=== PATIENT | female | born 1975 | race Caucasian/White ===

== ENCOUNTER 2020-10-19 07:35 | Day surgery (SDC) | payer OTHER ==
[2020-10-18 11:35] LABS: COVID AG,FIA SOURCE NASOPHARYNGEAL
[~2020-10-19] VITALS: Ht 149.9 cm; Wt 127.3 kg
[2020-10-19 09:00] LABS: GLUCOMETER DEV NAME(LOC) SDS.; GLUCOSE,POINT OF CARE 86 MG/DL (70-110)
[2020-10-19] MEDS ORDERED: SODIUM CHLORIDE 0.9% 1,000 ML IV ONE (09:00)
[2020-10-19] MEDS ORDERED: PROPOFOL 1% 20 ML VIAL IVP ONE (12:00)
[2020-10-19] MEDS ORDERED: LIDOCAINE/PF 2% 5 ML VIAL IM ONE (12:00)
== END 2020-10-19 12:10 | disposition home or self-care (01) ==
LOC: SURGERY 07:35
PROVIDERS: ATTEND Student in an Organized Health Care Education/Training Program
DX: Z12.11 Encounter for screening for malignant neoplasm of colon (principal); K63.5 Polyp of colon; K57.30 Diverticulosis of large intestine without perforation or abscess without bleeding; K64.8 Other hemorrhoids; E11.9 Type 2 diabetes mellitus without complications; K21.9 Gastro-esophageal reflux disease without esophagitis; Z98.890 Other specified postprocedural states; Z90.49 Acquired absence of other specified parts of digestive tract; E66.9 Obesity, unspecified; Z83.71 Family history of colonic polyps; Z88.0 Allergy status to penicillin; Z79.899 Other long term (current) drug therapy
CPT/HCPCS: 45380; 82962; 84703; 87426; 88305; C1769; C9803; J2704; J3490

== ENCOUNTER 2020-12-27 07:45 | Day surgery (SDC) | payer OTHER ==
[2020-12-23 11:04] LABS: COVID AG,FIA SOURCE NASOPHARYNGEAL
[~2020-12-27] VITALS: Ht 149.9 cm; Wt 124.5 kg
[~2020-12-27 07:45] MED LIST: SODIUM CHLORIDE 0.9% 1,000 ML ONE
[2020-12-27] MEDS ORDERED: SODIUM CHLORIDE 0.9% 1,000 ML IV ONE (08:00)
[2020-12-27 08:45] LABS: GLUCOMETER DEV NAME(LOC) SDS.; GLUCOSE,POINT OF CARE 92 MG/DL (70-110)
[2020-12-27] MEDS ORDERED: PROPOFOL 1% 20 ML VIAL IVP ONE (12:00)
[2020-12-27] MEDS ORDERED: LIDOCAINE/PF 2% 5 ML VIAL IM ONE (12:00)
== END 2020-12-27 12:15 | disposition home or self-care (01) ==
LOC: SURGERY 07:45
PROVIDERS: ATTEND Student in an Organized Health Care Education/Training Program
DX: K29.50 Unspecified chronic gastritis without bleeding (principal); K20.90 Esophagitis, unspecified without bleeding; K44.9 Diaphragmatic hernia without obstruction or gangrene; K31.89 Other diseases of stomach and duodenum; Z79.899 Other long term (current) drug therapy; Z90.49 Acquired absence of other specified parts of digestive tract; J45.909 Unspecified asthma, uncomplicated; Z98.890 Other specified postprocedural states
CPT/HCPCS: 43239; 82962; 84703; 87426; 88305; 88312; 88313; C1769; C9803; J2704; J3490; J7030